=== PATIENT | female | born 2000 | race Caucasian/White ===

== ENCOUNTER 2020-08-10 22:06 | Emergency (ER) | payer MEDICAID ==
--- NOTE | 2020-08-10 22:37 | ER Document Report ---
ED Medical Screen (RME) - General Chief Complaint: Cold Symptoms Stated Complaint: COUGH,SORE THROAT,HEADACHE Time Seen by Provider: 08/10/20 22:28 - HPI Notes: 08/10/20 22:36 20-year-old female to the emergency department with complaints of body aches, cough, fevers, sore throat, loss of taste, headache, nausea, diarrhea for the past 5 days. She states her T-max fever was 102. She states that she works at [employer] she has been around a lot of people who have been coughing. She does not know if she has had exposure to anyone with diagnosed COVID-19. She states that she feels like at times she is wheezing. She denies any chest pain, abdominal pain. The patient was evaluated during the global COVID 19 pandemic, and that diagnosis was suspected/considered upon their initial presentation. Their evaluation, treatment, and testing was consistent with current guidelines for patients who present with complaints or symptoms that may be related to COVID-19. I performed a brief medical screening exam on the patient determined that the patient needs further evaluation and management by main side provider. I have placed initial orders to help expedite care. Physical Exam - Vital signs Vitals: Temp Pulse Resp BP Pulse Ox 98.5 F 124 H 20 139/92 H 98 08/10/20 22:12 08/10/20 22:12 08/10/20 22:12 08/10/20 22:12 08/10/20 22:12 Course - Vital Signs Vital signs: Temp Pulse Resp BP Pulse Ox 98.5 F 124 H 20 139/92 H 98 08/10/20 22:12 08/10/20 22:12 08/10/20 22:12 08/10/20 22:12 08/10/20 22:12
--- NOTE | 2020-08-10 23:28 | RADIOLOGY REPORT (SQ) ---
EXAM DESCRIPTION: XR CHEST 1 VIEW COMPLETED DATE/TME: 08/10/2020 22:34 CLINICAL INDICATION: 20-year-old female with shortness of breath and fever. TECHNIQUE: Single view, AP portable chest was obtained. COMPARISON: None. FINDINGS: Unremarkable cardiac and mediastinal silhouette. Heart size is normal. Lungs are clear without focal opacity, pneumothorax or pleural effusions. S-shaped thoracolumbar scoliosis. The visualized bones are otherwise within normal limits. IMPRESSION: No acute cardiopulmonary abnormalities.
[2020-08-11 00:41] LABS: ABSOLUTE BASOPHILS # (AUTO) 0.1 10^3/uL (0.0-0.2); ABSOLUTE EOSINOPHILS # (AUTO) 0.1 10^3/uL (0.0-0.6); ABSOLUTE LYMPHOCYTES (AUTO) 1.9 10^3/uL (0.5-4.7); ABSOLUTE MONOCYTES (AUTO) 0.7 10^3/uL (0.1-1.4); ABSOLUTE NEUT (AUTO) 4.7 10^3/uL (1.7-8.2); BASOPHILS % (AUTO) 0.7 % (0-2); EOSINOPHILS % (AUTO) 1.3 % (0-6); HEMATOCRIT 43.5 % (36.0-47.0); HEMOGLOBIN 15.2 g/dL (12.0-15.5); LYMPHOCYTES % (AUTO) 25.4 % (13-45); MEAN CORPUSCULAR HEMOGLOBIN 31.5 pg (27.0-33.4); MEAN CORPUSCULAR HGB CONC 35.1 g/dL (32.0-36.0); MEAN CORPUSCULAR VOLUME 90 fl (80-97); MONOCYTES % (AUTO) 9.2 % (3-13); PLATELET COUNT 285 10^3/uL (150-450); RED BLOOD COUNT 4.84 10^6/uL (3.72-5.28); RED CELL DISTRIBUTION WIDTH 13.3 % (11.5-14.0); SEGMENTED NEUTROPHILS % (AUTO) 63.4 % (42-78); TOTAL CELLS COUNTED % (AUTO) 100 %; WHITE BLOOD COUNT 7.4 10^3/uL (4.0-10.5)
[2020-08-11 01:01] LABS: A TYPE INFLUENZA AG NEGATIVE (NEGATIVE); B INFLUENZA AG NEGATIVE (NEGATIVE)
[2020-08-11 01:07] LABS: ALBUMIN 4.7 g/dL (3.5-5.0); ALKALINE PHOSPHATASE 78 U/L (38-126); ANION GAP 11 (5-19); ASPARTATE AMINO TRANSFERASE 20 U/L (14-36); BILIRUBIN,DIRECT 0.3 mg/dL (0.0-0.4); BILIRUBIN,TOTAL 0.7 mg/dL (0.2-1.3); BLOOD UREA NITROGEN 8 mg/dL (7-20); CALCIUM 10.2 mg/dL (8.4-10.2); CARBON DIOXIDE 29 mmol/L (22-30); CHLORIDE 102 mmol/L (98-107); GLUCOSE 89 mg/dL (75-110); POTASSIUM 4.3 mmol/L (3.6-5.0); TOTAL PROTEIN 7.6 g/dL (6.3-8.2)
--- NOTE | 2020-08-11 04:26 | ER Document Report ---
ED General - General Chief Complaint: Flu Symptoms Stated Complaint: COUGH,SORE THROAT,HEADACHE Time Seen by Provider: 08/10/20 22:28 - HPI Notes: 20-year-old female presents with multiple symptoms. Patient states that she has had body aches, cough, fever of 102, sore throat, loss of taste, headache, nausea and diarrhea. Her symptoms have been present for the past 5 days. She notes that her symptoms improve when she takes naproxen or Tylenol. She states that she works at [employer]. She states that she smokes 4 cigarettes a day because this is part of her routine for work. - Related Data Allergies/Adverse Reactions: No Known Allergies Allergy (Verified 08/10/20 22:39) Home Medications: cymbalta, buspar Past Medical History - General Information source: Patient - Social History Smoking Status: Current Every Day Smoker Family History: Other - Autoimmune disease, mother Review of Systems - Review of Systems Constitutional: Fever EENT: Throat pain Cardiovascular: denies: Chest pain Respiratory: Cough Gastrointestinal: Diarrhea Genitourinary: No symptoms reported Female Genitourinary: No symptoms reported Musculoskeletal: Muscle pain Skin: No symptoms reported Hematologic/Lymphatic: No symptoms reported Neurological/Psychological: Headaches Physical Exam - Vital signs Vitals: Temp Pulse Resp BP Pulse Ox 98.5 F 124 H 20 139/92 H 98 08/10/20 22:12 08/10/20 22:12 08/10/20 22:12 08/10/20 22:12 08/10/20 22:12 - General General appearance: Appears well, Alert In distress: None - HEENT Head: Normocephalic, Atraumatic Pupils: PERRL Neck: Normal - Respiratory Breath sounds: Normal - Cardiovascular Rhythm: Regular Heart sounds: Normal auscultation - Abdominal Tenderness: Nontender - Extremities General upper extremity: Normal ROM General lower extremity: Normal ROM - Neurological Neuro grossly intact: Yes Cognition: Normal Orientation: AAOx4 Motor strength normal: LUE, RUE, LLE, RLE - Psychological Associated symptoms: Normal affect - Skin Skin Temperature: Warm Course - Re-evaluation Re-evalutation: 20-year-old female with constellation of symptoms consistent with a viral i llness. On exam she is well-appearing, lungs are clear, abdomen nontender, no focal neuro deficits. She had a laboratory evaluation done prior to evaluation, CBC and CMP were unremarkable. Rapid flu was negative. Strep was negative. Chest x-ray without consolidation. Patient was updated on these results. Discussed with her that given it is the Covid pandemic, her symptoms are suggestive of Covid currently and she will undergo testing. Patient became upset when hearing this because she lives with her mother who is immunocompromise secondary to lupus, also stating that her mother had a t emperature of 104. I encouraged her to tell her mother to undergo Covid testing. Patient's overall main complaint is a sore throat, she was given a dose of p.o. Decadron for pharyngitis. We discussed supportive care and strict self quarantine at home until Covid swab results. A work note was provided. Return precautions given, patient stable at time of discharge. - Vital Signs Vital signs: Temp Pulse Resp BP Pulse Ox 98.4 F 76 16 128/72 H 98 08/11/20 05:19 08/11/20 05:19 08/11/20 05:19 08/11/20 05:19 08/11/20 05:19 - Laboratory Result Diagrams: 08/11/20 00:15 08/11/20 00:15 - Diagnostic Test Radiology reviewed: Image reviewed, Reports reviewed - EKG Interpretation by Me Additional EKG results interpreted by me: EKG is interpreted by me. Normal sinus rhythm, rate 92. Narrow QRS, QTC within normal limits. No ST segment changes. Discharge - Discharge Clinical Impression: Viral illness, Person under investigation for COVID-19 Disposition: HOME, SELF-CARE Instructions: COVID-19 Guidance for Persons Under Investigation Additional Instructions: Continue supportive care for symptoms to be sure to drink plenty of fluids. Please undergo strict quarantine at home until you receive results of Covid testing. You must also stay out of work until you have the results. Please return to the emergency department for any concerning worsening symptoms. Forms: Smoking Cessation Education, Return to Work
[2020-08-11] MEDS ORDERED: DEXAMETHASONE 4 MG TABLET PO ONE (04:45)
[2020-08-11 05:21] VITALS: BP 128/72
--- NOTE | 2020-08-11 16:21 | EKG REPORT ---
SEVERITY:- BORDERLINE ECG - SINUS RHYTHM PROBABLE LEFT ATRIAL ABNORMALITY : Confirmed by: Jaya Alford MD 11-Aug-2020 16:20:41
== END 2020-08-11 05:19 | disposition home or self-care (01) ==
LOC: ER 22:06
DX: B34.9 Viral infection, unspecified (principal); R05 Cough; J02.9 Acute pharyngitis, unspecified; R51.9 Headache, unspecified; M79.10 Myalgia, unspecified site; R43.9 Unspecified disturbances of smell and taste; R11.0 Nausea; R19.7 Diarrhea, unspecified; R50.9 Fever, unspecified; Z20.828 Contact with and (suspected) exposure to other viral communicable diseases; F17.210 Nicotine dependence, cigarettes, uncomplicated; Z79.899 Other long term (current) drug therapy
CPT/HCPCS: 93005; 99285; 36415; 87070; 87880; 85025; 87635; 80053; 87804; 71045; 93010; J3490; C9803; J8540